=== PATIENT | female | born 1990 | race Caucasian/White ===

== ENCOUNTER 2016-07-30 08:32 | Emergency (ER) | payer OTHER ==
[~2016-07-30] VITALS: Ht 167.6 cm; Wt 91.4 kg
[~2016-07-30 08:32] MED LIST: HYDR-3965 PO
[2016-07-30 11:55] VITALS: BP 128/75
== END 2016-07-30 13:40 | disposition home or self-care (01) ==
LOC: EMS 08:34
DX: S93.402A Sprain of unspecified ligament of left ankle, initial encounter (principal); Z87.891 Personal history of nicotine dependence; W19.XXXA Unspecified fall, initial encounter; Y93.89 Activity, other specified; Y92.89 Other specified places as the place of occurrence of the external cause; Y99.8 Other external cause status
CPT/HCPCS: 29515; 81025; 99284

== ENCOUNTER 2018-04-02 13:12 | Emergency (ER) | payer OTHER ==
[~2018-04-02] VITALS: Ht 167.6 cm; Wt 100.0 kg
[2018-04-02 15:01] LABS: APPEARANCE,URINE CLEAR (CLEAR); BILIRUBIN,URINE NEGATIVE (NEGATIVE); GLUCOSE, URINE (UA) NEGATIVE (NEGATIVE); KETONES,URINE NEGATIVE (NEGATIVE); LEUKOCYTE ESTERASE ,URINE NEGATIVE (NEGATIVE); NITRATE,URINE NEGATIVE (NEGATIVE); OCCULT BLOOD,URINE TRACE (NEGATIVE); PH,URINE 6.5 (5.0-8.0); PROTEIN,URINE NEGATIVE (NEGATIVE); UROBILINOGEN,URINE 0.2 mg/dL (<=1.0)
[2018-04-02 15:11] LABS: BACTERIA,URINE None Seen /HPF (None Seen); RBC,URINE 0-2 /HPF (0-2); SQUAMOUS EPITHELIAL CELL,UR Rare /LPF (None Seen); WBC,URINE 0-2 /HPF (0-5)
[2018-04-02] MEDS ORDERED: KETOROLAC TROMETHAMINE 30 MG/ML VIAL IM ONE (15:30)
[2018-04-02 15:50] VITALS: BP 133/69
== END 2018-04-02 16:07 | disposition home or self-care (01) ==
LOC: EMS 13:12
DX: M54.5 Low back pain (principal); M54.6 Pain in thoracic spine; R10.9 Unspecified abdominal pain; Z87.891 Personal history of nicotine dependence
CPT/HCPCS: 81001; 84703; 96372; 99283; J1885

== ENCOUNTER 2018-04-11 10:11 | Emergency (ER) | payer OTHER ==
[~2018-04-11] VITALS: Ht 167.6 cm; Wt 104.1 kg
[2018-04-11] MEDS ORDERED: DEXAMETHASONE 4 MG TABLET PO ONE (12:15)
[2018-04-11 13:22] VITALS: BP 126/77
== END 2018-04-11 13:35 | disposition home or self-care (01) ==
LOC: EMS 10:12
DX: J02.9 Acute pharyngitis, unspecified (principal); R03.0 Elevated blood-pressure reading, without diagnosis of hypertension; M79.10 Myalgia, unspecified site; Z87.891 Personal history of nicotine dependence
CPT/HCPCS: 81025; 87430; 99283; J8540

== ENCOUNTER 2018-07-24 14:17 | Emergency (ER) | payer OTHER ==
[~2018-07-24] VITALS: Ht 167.6 cm; Wt 107.7 kg
[2018-07-24] MEDS ORDERED: BENZOCAINE/MENTHOL LOZENGE PO ONE (15:15)
[2018-07-24 17:02] VITALS: BP 139/79
== END 2018-07-24 17:15 | disposition home or self-care (01) ==
LOC: EMS 14:20
DX: J02.0 Streptococcal pharyngitis (principal); F17.210 Nicotine dependence, cigarettes, uncomplicated
CPT/HCPCS: 87430; 99406